=== PATIENT | male | born 1995 | race Caucasian/White ===

== ENCOUNTER 2020-04-24 19:46 | Emergency (ER) | payer OTHER ==
[~2020-04-24] VITALS: Ht 180.3 cm; Wt 136.5 kg
== END 2020-04-24 23:11 | disposition home or self-care (01) ==
LOC: ED 19:46
PROC: 0HQEXZZ Repair Left Lower Arm Skin, External Approach (ICD-10-PCS; principal; 2020-04-24)
DX: S51.812A Laceration without foreign body of left forearm, initial encounter (principal); Z87.891 Personal history of nicotine dependence; W27.8XXA Contact with other nonpowered hand tool, initial encounter
CPT/HCPCS: 12004; 99282-25